=== PATIENT | male | born 1945 | race Hispanic/Latino ===

== ENCOUNTER 2021-06-23 06:05 | Observation (INO) | payer OTHER ==
[2021-06-20 09:31] LABS: BASOPHILS % (AUTO) 0.4 % (0.0-5.0); EOSINOPHILS % (AUTO) 0.4 % (0.0-8.0); HEMATOCRIT 34.1 % (42-54); LYMPHOCYTES % (AUTO) 8.8 % (21.0-51.0); MEAN CORPUSCULAR HEMOGLOBIN 29.7 pg (27.0-33.0); MEAN CORPUSCULAR HGB CONC 33.7 g/dL (32.0-36.0); MEAN CORPUSCULAR VOLUME 88.1 fL (79-99); MONOCYTES % (AUTO) 8.5 % (3.0-13.0); NEUTROPHILS % (AUTO) 81.8 % (40.0-77.0); PLATELET COUNT (AUTO) 308 K/uL (130-400); RED BLOOD CELL COUNT(AUTO) 3.87 MIL/uL (4.50-6.20); WHITE BLOOD COUNT (AUTO) 6.7 K/uL (4.8-10.8)
[2021-06-20 09:32] LABS: APPEARANCE,URINE Clear (CLEAR); BILIRUBIN,URINE Negative (NEGATIVE); COLOR,URINE Dark Yellow (YELLOW); GLUCOSE, URINE (UA) Negative (NEGATIVE); KETONES,URINE Negative (NEGATIVE); LEUKOCYTE ESTERASE ,URINE Trace (NEGATIVE); NITRATE,URINE Negative (NEGATIVE); OCCULT BLOOD,URINE Negative (NEGATIVE); PH,URINE 7.5 (5.0-8.0); PROTEIN,URINE Negative (NEGATIVE)
[2021-06-20 09:39] LABS: CREATININE 0.8 mg/dL (0.5-1.5); POTASSIUM 3.9 mmol/L (3.5-5.1)
[2021-06-20 09:41] LABS: INR 1.02 (0.85-1.15); PROTHROMBIN TIME 11.1 SEC (9.6-11.6)
[2021-06-20 09:47] LABS: BACTERIA,URINE Rare /HPF (None Seen); MUCUS,URINE Rare LPF (None Seen); RBC,URINE 0-1 /HPF (0-1); SQUAMOUS EPITHELIAL CELL,UR Rare /HPF (0-2); WBC,URINE 0-1 /HPF (0-1)
[2021-06-20 10:32] VITALS: BP 164/74
[2021-06-23] VITALS (23 sets, daily range): BP systolic 120–167; BP diastolic 51–95
[~2021-06-23] VITALS: Ht 162.6 cm; Wt 54.8 kg
[2021-06-23] MEDS: CEFAZOLIN SODIUM 2 GM VIAL IV SCH ×3 (05:00→18:37)
[~2021-06-23 06:05] MED LIST: ATOR40TA69 PO; DOXA2TAB2 PO; FINA5TAB41 PO; HYDR25TA PO; LOSA100T58 PO; PANT40TA54 PO
[2021-06-23] MEDS ORDERED: CEFAZOLIN SODIUM 1 GM VIAL ONE ×2 (07:04→09:24)
[2021-06-23] MEDS ORDERED: LACTATED RINGERS 1000ML 1,000 ML IV ONE (07:04)
[2021-06-23] MEDS ORDERED: TRANEXAMIC ACID 1000MG/10ML ONE ×2 (09:24→14:01)
[2021-06-23] MEDS ORDERED: PROPOFOL 10 MG/ML 20ML VIAL IV ONE ×2 (09:53→13:20)
[2021-06-23] MEDS ORDERED: LIDOCAINE PF 100MG/5ML (2%) SYRINGE 5ML ONE (09:53)
[2021-06-23] MEDS ORDERED: SUCCINYLCHOLINE CHLORIDE 20 MG/ML 10 ML VIAL ONE (09:53)
[2021-06-23] MEDS ORDERED: MIDAZOLAM HCL 1 MG/ML 2ML VIAL ONE (09:53)
[2021-06-23] MEDS ORDERED: FENTANYL CITRATE PF 50 MCG/1 ML 2ML VIAL ONE (09:54)
[2021-06-23] MEDS ORDERED: ROCURONIUM 10MG/1ML SYR 10 MG/ML ML ONE (09:54)
[2021-06-23] MEDS ORDERED: DEXAMETHASONE SOD PHOSPHATE 10MG/ML 1ML VIAL ONE (10:03)
[2021-06-23] MEDS ORDERED: ROPIVACAINE 0.5% 5MG/ML 30ML IJ ONE (10:03)
[2021-06-23] MEDS ORDERED: EPHEDRINE SULFATE 50 MG/ML AMPULE ONE (10:47)
[2021-06-23] MEDS ORDERED: POTASSIUM CHLORIDE 20MEQ/100ML 100 ML IV PRN (14:00)
[2021-06-23] MEDS ORDERED: TEMAZEPAM 15 MG CAPSULE PO PRN (14:00)
[2021-06-23] MEDS ORDERED: TRAMADOL HCL 50 MG TABLET PO PRN (14:00)
[2021-06-23] MEDS ORDERED: DiphenhydrAMINE HCL 50 MG/ML VIAL IVP PRN (14:00)
[2021-06-23] MEDS ORDERED: FERROUS FUMARATE 324 MG TABLET PO PRN (14:00)
[2021-06-23] MEDS ORDERED: CALCIUM CARB 500MG PO PRN (14:00)
[2021-06-23] MEDS ORDERED: ONDANSETRON 4MG INJ IVP PRN (14:00)
[2021-06-23] MEDS ORDERED: 0.9%NACL 1000ML 1,000 ML IV SCH (14:00)
[2021-06-23] MEDS ORDERED: KETOROLAC 15MG/ML VIAL (15MG/ML) IV PRN (14:00)
[2021-06-23] MEDS ORDERED: OXYCODONE HCL 5 MG TAB PO PRN (14:00)
[2021-06-23] MEDS: ACETAMINOPHEN 500 MG TABLET PO SCH ×2 (14:00→20:15)
[2021-06-23] MEDS ORDERED: KCL 20 MEQ ERTAB PO PRN (14:00)
[2021-06-23] MEDS ORDERED: LIDOCAINE HCL-MPF 1% 2ML VIAL IV PRN (14:00)
[2021-06-23] MEDS ORDERED: POTASSIUM CHLORIDE 10% ELIXIR 20 MEQ/15 ML UDCUP PO PRN (14:00)
[2021-06-23] MEDS: OXYCODONE HCL 5 MG TAB PO PRN (15:26)
[2021-06-23] MEDS: CEFAZOLIN SODIUM 1 GM VIAL IVP SCH (18:45)
[2021-06-23] MEDS: CELECOXIB 200 MG CAP PO SCH (20:13)
[2021-06-23] MEDS: ASPIRIN 81 MG EC TAB PO SCH (20:13)
[2021-06-23] MEDS: PREGABALIN 25 MG CAP PO SCH (20:14)
[2021-06-24] MEDS: CEFAZOLIN SODIUM 1 GM VIAL IVP SCH (02:53)
[2021-06-24 05:09] VITALS: BP 136/63
[2021-06-24] MEDS: ACETAMINOPHEN 500 MG TABLET PO SCH ×3 (05:26→20:12)
[2021-06-24 06:12] LABS: MEAN CORPUSCULAR HEMOGLOBIN 30.4 pg (27.0-33.0); MEAN CORPUSCULAR HGB CONC 33.3 g/dL (32.0-36.0); MEAN CORPUSCULAR VOLUME 91.3 fL (79-99); RED BLOOD CELL COUNT(AUTO) 2.63 MIL/uL (4.50-6.20); RED CELL DISTRIBUTION WIDTH 15.2 % (11.0-15.5)
[2021-06-24 06:49] LABS: CREATININE 0.8 mg/dL (0.5-1.5); POTASSIUM 3.7 mmol/L (3.5-5.1)
[2021-06-24 07:40] VITALS: BP 139/66
[2021-06-24] MEDS: OXYCODONE HCL 5 MG TAB PO PRN (08:09)
[2021-06-24] MEDS: ASPIRIN 81 MG EC TAB PO SCH ×2 (09:31→20:11)
[2021-06-24] MEDS: POLYETHYLENE GLYCOL 3350 17 GM POWD.PACK PO SCH (09:31)
[2021-06-24] MEDS: ATORVASTATIN 40 MG TABLET PO SCH (09:32)
[2021-06-24] MEDS: PREGABALIN 25 MG CAP PO SCH ×2 (09:32→20:12)
[2021-06-24] MEDS: PANTOPRAZOLE 40 MG TAB DR PO SCH (09:33)
[2021-06-24] MEDS: DOXAZOSIN MESYLATE 2 MG TABLET PO SCH (09:34)
[2021-06-24] MEDS: LOSARTAN 100 MG TABLET PO SCH (09:35)
[2021-06-24] MEDS: FINASTERIDE 5 MG TABLET PO SCH (09:35)
[2021-06-24] MEDS: HYDROCHLOROTHIAZIDE 25 MG TABLET PO SCH (09:35)
[2021-06-24] MEDS: CELECOXIB 200 MG CAP PO SCH ×2 (09:36→20:11)
[2021-06-24 11:06] VITALS: BP 127/78
[2021-06-24 16:18] VITALS: BP 138/68
[2021-06-24 20:30] VITALS: BP 126/58
[2021-06-24 23:58] VITALS: BP 137/84
[2021-06-25] MEDS: CEFAZOLIN SODIUM 2 GM VIAL IV SCH (01:03)
[2021-06-25 04:05] VITALS: BP 148/65
[2021-06-25] MEDS: ACETAMINOPHEN 500 MG TABLET PO SCH ×3 (05:06→19:49)
[2021-06-25] MEDS: OXYCODONE HCL 5 MG TAB PO PRN (07:48)
[2021-06-25 07:54] VITALS: BP 139/73
[2021-06-25] MEDS: POLYETHYLENE GLYCOL 3350 17 GM POWD.PACK PO SCH (08:38)
[2021-06-25] MEDS: FINASTERIDE 5 MG TABLET PO SCH (08:39)
[2021-06-25] MEDS: HYDROCHLOROTHIAZIDE 25 MG TABLET PO SCH (08:39)
[2021-06-25] MEDS: LOSARTAN 100 MG TABLET PO SCH (08:39)
[2021-06-25] MEDS: ATORVASTATIN 40 MG TABLET PO SCH (08:39)
[2021-06-25] MEDS: ASPIRIN 81 MG EC TAB PO SCH ×2 (08:39→19:48)
[2021-06-25] MEDS: DOXAZOSIN MESYLATE 2 MG TABLET PO SCH (08:40)
[2021-06-25] MEDS: PANTOPRAZOLE 40 MG TAB DR PO SCH (08:40)
[2021-06-25] MEDS: PREGABALIN 25 MG CAP PO SCH ×2 (08:40→19:49)
[2021-06-25] MEDS: CELECOXIB 200 MG CAP PO SCH ×2 (08:40→19:48)
[2021-06-25 11:04] VITALS: BP 99/48
[2021-06-25 15:34] VITALS: BP 100/49
[2021-06-25] MEDS ORDERED: LEVO500T90 PO (18:35)
[2021-06-25] MEDS ORDERED: HYDR-4060 PO (18:35)
[2021-06-25] MEDS ORDERED: AEC81 PO (18:35)
[2021-06-26] MEDS ORDERED: BISACODYL 10 MG SUPP.RECT RC PRN (14:00)
== END 2021-06-25 21:31 | disposition home health service (06) ==
LOC: DAH 06:05 → DAHIP 06:06 → 3AH 14:38
PROVIDERS: ADMIT Orthopaedic Surgery; ATTEND Orthopaedic Surgery
DX: M16.12 Unilateral primary osteoarthritis, left hip (principal); I10 Essential (primary) hypertension; E78.00 Pure hypercholesterolemia, unspecified; N39.0 Urinary tract infection, site not specified; D64.9 Anemia, unspecified
CPT/HCPCS: 27130; 36415 ×3; 73503; 80048 ×2; 81001; 85025; 85027; 85610; 86850; 86900; 86901; 87077; 87088; 87186; 87635; 87641; 93005; 96374; 96376; 97039 ×4; 97116 ×4; 97161; 97530 ×3; A4215; A4221; A4222; A4223; A4649 ×5; A4663; A5120; A9272; C1776; C9803; G0378 ×55; J0330; J0690 ×4; J1100; J2001; J2250; J2704; J2795; J3010; J3490 ×3; J7120